=== PATIENT | male | born 1960 | race Caucasian/White ===

== ENCOUNTER 2024-10-06 06:23 | Day surgery (SDC) | payer BC, SELFPAY ==
[2024-10-06 14:16] LABS: Glucose - Point of Care 139 mg/dl (70-99)
== END 2024-10-06 15:48 | disposition home or self-care (01) ==
LOC: GI 06:23
PROVIDERS: ATTENDING PHYSICIAN Internal Medicine Gastroenterology
DX: Z12.11 Encounter for screening for malignant neoplasm of colon (principal); K57.30 Diverticulosis of large intestine without perforation or abscess without bleeding; K64.8 Other hemorrhoids; D12.2 Benign neoplasm of ascending colon; D12.3 Benign neoplasm of transverse colon; Z86.0100 Personal history of colon polyps, unspecified
CPT/HCPCS: 45385; 88305; 82962